=== PATIENT | male | born 1965 | race Caucasian/White ===

== ENCOUNTER 2020-05-18 14:35 | Emergency (ER) | payer OTHER ==
--- NOTE | 2020-05-18 15:13 | ER Document Report ---
ED Medical Screen (RME) - General Chief Complaint: Eye Pain Stated Complaint: EYE PAIN/IRRITATION Time Seen by Provider: 05/18/20 15:05 Mode of Arrival: Ambulatory Information source: Patient Notes: Patient is a 54-year-old male presents emergency department chief complaint of right eye pain, swelling and blurred vision. Patient reports yesterday he was using a lens grinder and polisher to grind metal when he believes he may have gotten something in his eye. He was wearing some eye protection. He states that the pain and swelling has increased through the night, he feels like there is something stuck in his eye. He does not wear contact lenses. I have greeted and performed a rapid initial assessment of this patient. A comprehensive ED assessment and evaluation of the patient, analysis of test re sults and completion of the medical decision making process will be conducted by additional ED providers. I have specifically instructed the patient or family members with the patient to immediately return to any nursing staff should anything change in the patient's condition or with their chief complaint. Past Medical History - Social History Chew tobacco use (# tins/day): No Frequency of alcohol use: None Drug Abuse: None Physical Exam - Vital signs Vitals: Temp Pulse Resp BP Pulse Ox 98.1 F 71 18 125/86 H 96 05/18/20 14:41 05/18/20 14:41 05/18/20 14:41 05/18/20 14:41 05/18/20 14:41 Course - Vital Signs Vital signs: Temp Pulse Resp BP Pulse Ox 98.1 F 71 18 125/86 H 96 05/18/20 14:41 05/18/20 14:41 05/18/20 14:41 05/18/20 14:41 05/18/20 14:41
[2020-05-18] MEDS ORDERED: TETRACAINE HCL 0.5% OPH SOLN 4 ML ONE (16:35)
[2020-05-18] MEDS ORDERED: TETRACAINE HCL 0.5% OPH SOLN 4 ML OD ONE (17:30)
--- NOTE | 2020-05-18 17:35 | ER Document Report ---
ED Eye Complaint - General Chief Complaint: Eye Pain Stated Complaint: EYE PAIN/IRRITATION Time Seen by Provider: 05/18/20 15:05 Mode of Arrival: Ambulatory Notes: ED Medical Screen ([facility]) - General Chief Complaint: Eye Pain Stated Complaint: EYE PAIN/IRRITATION Time Seen by Provider: 05/18/20 15:05 Mode of Arrival: Ambulatory Information source: Patient Notes: Patient is a 54-year-old male presents emergency department chief complaint of right eye pain, swelling and blurred vision. Patient reports yesterday he was using a sausage grinder to grind metal when he believes he may have gotten something in his eye. He was wearing some eye protection. He states that the pain and swelling has increased through the night, he feels like there is something stuck in his eye. He does not wear contact lenses. MY NOTES 54-year-old male arrives with acute onset of irritation to his right upper lid after he was using a yolis surface grinder cutting some steel at [employer]. This happened just prior to arrival today. His right upper lid is red. He was wearing safety glasses but felt an impact to his right upper eyelid which is now reddened and swollen. Patient reported he had some right eye pain swelling and blurry vision but has less pain after tetracaine. Also floor seen was used to inspect the cornea and I did not see any defect. However his right upper eyelid did have some fluorescein uptake around 120 degrees. By Snellen chart I documented 20/200 with his unaffected left eye and 20/100 with his right injured eye. Past Medical History - General Information source: Patient - Social History Smoking Status: Current Some Day Smoker Cigarette use (# per day): Yes Chew tobacco use (# tins/day): No Smoking Education Provided: Yes Frequency of alcohol use: None Drug Abuse: None Lives with: Family Family History: Reviewed & Not Pertinent Patient has suicidal ideation: No Patient has homicidal ideation: No Review of Systems - Review of Systems Constitutional: No symptoms reported EENT: See HPI, Eye pain, Blurred vision Cardiovascular: No symptoms reported Respiratory: No symptoms reported Gastrointestinal: No symptoms reported Genitourinary: No symptoms reported Male Genitourinary: No symptoms reported Musculoskeletal: No symptoms reported Skin: No symptoms reported Hematologic/Lymphatic: No symptoms reported Neurological/Psychological: No symptoms reported Physical Exam - Vital signs Vitals: Temp Pulse Resp BP Pulse Ox 98.1 F 71 18 125/86 H 96 05/18/20 14:41 05/18/20 14:41 05/18/20 14:41 05/18/20 14:41 05/18/20 14:41 Interpretation: Normal - General General appearance: Appears well, Alert - HEENT Head: Normocephalic, Atraumatic Eyes: Other - Right upper eyelid erythemic and tender to palpation Conjunctiva: Normal Cornea: Flourescein stain uptake - No corneal defects on floor seen ultraviolet presentation but there is some yellow uptake to his right upper eyelid around 120 degrees.. Presenting going from midline to the right lateral mucosa. Patient's pain was severe until tetracaine was given to the patient., Superficial foreign body - I do not suspect any foreign body but rather an impact injury to this area. We will x-ray the area just to be on the safe side. I tried to contact Dr. Hill eye doctor but he advised it was only for people who were under his group care today. This was through the thermal cutting machine operator at 1710. Extraocular movements intact: Yes Eyelashes: Normal Pupils: PERRL Fundascopic: Normal Visual swain normal: Yes Ears: Normal Nasal: Normal Mouth/Lips: Normal Mucous membranes: Normal Pharynx: Normal Neck: Normal - Respiratory Respiratory status: No respiratory distress Chest status: Nontender Breath sounds: Normal Chest palpation: Normal - Cardiovascular Rhythm: Regular Heart sounds: Normal auscultation Murmur: No - Abdominal Inspection: Normal Distension: No distension Bowel sounds: Normal Tenderness: Nontender Organomegaly: No organomegaly - Rectal Prostate: Other - deferred - Genitourinary Scrotum: Other - deferred - Back Back: Normal, Nontender - Extremities General upper extremity: Normal inspection, Nontender, Normal color, Normal ROM, Normal temperature General lower extremity: Normal inspection, Nontender, Normal color, Normal ROM, Normal temperature, Normal weight bearing. No: Rachel's sign - Neurological Neuro grossly intact: Yes Cognition: Normal Orientation: AAOx4 [place] Coma Scale Eye Opening: Spontaneous Nya Coma Scale Verbal: Oriented [place] Coma Scale Motor: Obeys Commands [place] Coma Scale Total: 15 Speech: Normal Motor strength normal: LUE, RUE, LLE, RLE Sensory: Normal - Psychological Associated symptoms: Normal affect - Skin Skin Temperature: Warm Skin Moisture: Dry Skin Color: Normal Course - Vital Signs Vital signs: Temp Pulse Resp BP Pulse Ox 98.1 F 71 18 125/86 H 96 05/18/20 14:41 05/18/20 14:41 05/18/20 14:41 05/18/20 14:41 05/18/20 14:41 Discharge - Discharge Clinical Impression: superior eyelid impact injury Condition: Good Disposition: HOME, SELF-CARE Additional Instructions: Follow-up with Dr. Peg Reyes at her eye clinic on Thursday or Thursday; take medicines as directed apply cool compresses to affected left eye every 1-2 hours as needed for pain. May take Motrin Advil [id number] as needed for pain as well. Apply eyedrops as directed 4 times a day until seen by supervisor landscape. Return to ER as needed. Wear sunglasses or glasses while waiting to see eye doctor. Do not wear eye patch over right eye. Prescriptions: Cephalexin Monohydrate [Keflex 500 mg Capsule] 500 mg PO BID 5 Days #20 capsule Referrals: PEG MORENO MD [ACTIVE STAFF] - Follow up as needed
[2020-05-18] MEDS ORDERED: TOBRAMYCIN SULFATE/DEXAMETH OPH SUSP 2.5 ML OS ONE (17:57)
--- NOTE | 2020-05-18 18:09 | RADIOLOGY REPORT (SQ) ---
EXAM DESCRIPTION: ORBITS 4 IMAGES COMPLETED DATE/TIME: 05/18/2020 5:55 pm REASON FOR STUDY: fb r eye COMPARISON: None. NUMBER OF VIEWS: Five view. TECHNIQUE: Images of the facial bones acquired. LIMITATIONS: None. FINDINGS: ORBITS: No fracture. No foreign body. SINUSES: No mucosal thickening. No air fluid levels. FACIAL BONES: No fracture. OTHER: No other significant finding. IMPRESSION: No radiopaque foreign body is seen in either orbit. No facial fractures are seen. TECHNICAL DOCUMENTATION: JOB ID: [id number] [email or web address]- All Rights Reserved Reading location - IP/workstation name: [email or web address]
[2020-05-18 18:50] VITALS: BP 113/82
== END 2020-05-18 18:47 | disposition home or self-care (01) ==
LOC: ER 14:35
DX: S05.8X2A Other injuries of left eye and orbit, initial encounter (principal); H57.11 Ocular pain, right eye; H53.8 Other visual disturbances; W22.8XXA Striking against or struck by other objects, initial encounter; Y93.H3 Activity, building and construction; Y99.0 Civilian activity done for income or pay
CPT/HCPCS: 99283; 70200; J3490 ×2